=== PATIENT | female | born 1960 | race Two or more races ===

== ENCOUNTER 2024-01-13 15:10 | Outpatient (AMB) | payer MEDICARE, MEDICAID, SELFPAY ==
[2024-01-13 16:00] VITALS: BP 137/79; PULSE 80; RESP 18; TEMP 36.6; O2SAT 94; BMI 42.1
--- NOTE | 2024-01-13 16:00 | PD.ORTHCLVIS ---
Vital signs 01/13/24 16:00 Height 1.52 m Height Method Stated Weight 97.296 kg Weight Measurement Method Standing Scale BMI 42.1 BP 137/79 H Blood Pressure Source Automatic Cuff Blood Pressure Location Right Upper Arm Position Sitting Respiration 18 Pulse 80 Pulse Source Monitor Temp 97.8 F Temp Source Temporal Artery Scan Pulse Oximetry (%) 94 L Oxygen Delivery Method Room Air Med/Allergies Allergies & Medications Allergies No Known Allergies Allergy (Verified 01/13/24 16:01) Medication Reconciliation Unobtainable 06/17/23 [History Confirmed 01/13/24] Subjective Visit Visit for: follow up visit Immunization / Flu Flu Vaccine in the Last 12 Months: No Flu Vaccine Exclusion Criteria: No Exclusion Criteria Pain Pain level (0-10): 5 Pain duration: ALL DAY Pain quality: sharp, dull and aching Ambulatory data Ambulatory device: none Treatments Improvement with previous injections: No Improvement with PT: No Improvement with NSAIDS: no Review of Systems Review of Systems: All systems negative unless otherwise noted in HPI. Assessment and Plan Advanced Care Planning Discussion Advance care planning discussed with:: patient Office Procedures GNS Level of Care Nursing/Assessment Patient Status: Established Patient Nursing Assessment/Reassesment: Medication Reconciliation, Update PMH in EMR and Vital Signs Coordination of Care: Complex Care and Chronic Disease 1-5, Education Complex Pt/Fam, Consent,records obtained, informed consent and Staff clarify orders Established Patient Charge Established Patient Point Assignment: 90 Established Patient Point Charge: EP Level 3 (80-115) Past Medical History Past Medical History Have you ever been diagnosed with any of the following: Respiratory Problems Smoking: No Smoking Exposure: No
--- NOTE | 2024-01-13 16:23 | PD.ORTHCLVIS ---
Vital signs 01/13/24 16:00 01/13/24 16:26 Height 1.52 m Height Method Stated Weight 97.296 kg Weight Measurement Method Standing Scale BMI 42.1 BP 137/79 H 137/79 H Blood Pressure Source Automatic Cuff Blood Pressure Location Right Upper Arm Position Sitting Respiration 18 18 Pulse 80 80 Pulse Source Monitor Temp 97.8 F 97.8 F Temp Source Temporal Artery Scan Pulse Oximetry (%) 94 L 94 L Oxygen Delivery Method Room Air Med/Allergies Allergies & Medications Allergies No Known Allergies Allergy (Verified 01/13/24 16:01) Medication Reconciliation Unobtainable 06/17/23 [History Confirmed 01/13/24] Subjective Visit Visit for: follow up visit Immunization / Flu Flu Vaccine in the Last 12 Months: No Flu Vaccine Exclusion Criteria: No Exclusion Criteria History of Present Illness Chief complaint: Bilateral knee pain Patient is a 63-year-old female with bilateral knee arthritis who is morbidly obese. She had injections 1 month ago. Was done by resident with my supervision. She reports that she had significant pain since that injection. She reports that she wants an MRI. She also has explained to us that she talk to our front desk lead and they Told her that I had a nurse practitioner give her an injection. I let her know that if anyone else gave the injection he would have been a resident physician under my supervision life trained before. Pain Pain level (0-10): 5 Pain duration: ALL DAY Pain quality: sharp, dull and aching Ambulatory data Ambulatory device: none Treatments Improvement with previous injections: No Improvement with PT: No Improvement with NSAIDS: no Review of Systems Review of Systems: All systems negative unless otherwise noted in HPI. Exam Exam Patient is in no acute distress and is cooperative with the examination today. Breathing is nonlabored. In no respiratory distress. Bilateral extremities were evaluated and demonstrates sensation intact to light touch. Palpable pedal pulses are present. No significant edema is present. Bilateral hips were examined. The patient has no pain with log roll of the hips. Internal rotation to 30 degrees and external rotation to 30 degrees is painless. Negative FADIR. The left knee was examined. The left knee is in [varus] alignment. Range of motion from [0-115] degrees. Knee is stable to varus and valgus as well as AP translation with <5mm. Patient has a [negative] McMurrays. There is [no] pain with patellofemoral compression and [no] crepitus noted. The knee is [tender] to palpation [medially]. The right knee was also examined. The right knee is in [varus] alignment. Range of motion from [0-120] degrees. Knee is stable to varus and valgus as well as AP translation with <5mm. Patient has a [negative] McMurrays. There is [no] pain with patellofemoral compression and [no] crepitus noted. The knee is [tender] to palpation [medially]. xrays demonstrate bilateral complete joint space narrowing medially and varus arthritis. Assessment and Plan Problem List (1) Bilateral primary osteoarthritis of knee: Status: Acute Plan Patient is a 63-year-old female who is morbidly obese. She is complaining a lot from her last injection. We discussed with her that as you have more severe arthritis the injections work less and less. She attributed to the fact that the resident did the injection. I discussed with her that there is very little danger and a cortisone injection. I discussed with her that the pain always be durable with a cortisone injection especially in the setting of severe arthritis. I also let her know that if she does not feel comfortable with this office she can find another provider. I gave her multiple options today including repeat injection as well as waiting for another month fourth and total X 3 months. She would like to wait another month before her injection. Advanced Care Planning Discussion Advance care planning discussed with:: patient Office Procedures GNS Level of Care Nursing/Assessment Patient Status: Established Patient Nursing Assessment/Reassesment: Medication Reconciliation, Update PMH in EMR and Vital Signs Coordination of Care: Complex Care and Chronic Disease 1-5, Education Complex Pt/Fam, Consent,records obtained, informed consent and Staff clarify orders Established Patient Charge Established Patient Point Assignment: 90 Established Patient Point Charge: EP Level 3 (80-115) Past Medical History Past Medical History Have you ever been diagnosed with any of the following: Respiratory Problems Smoking: No Smoking Exposure: No
[2024-01-13 16:26] VITALS: BP 137/79; PULSE 80; RESP 18; TEMP 36.6; O2SAT 94
== END 2024-01-13 16:33 | disposition home or self-care (01) ==
PROVIDERS: Supervising Provider Orthopaedic Surgery Adult Reconstructive Orthopaedic Surgery; Visit Provider Orthopaedic Surgery Adult Reconstructive Orthopaedic Surgery
DX: M17.0 Bilateral primary osteoarthritis of knee (principal); E66.01 Morbid (severe) obesity due to excess calories; Z68.41 Body mass index [BMI] 40.0-44.9, adult
CPT/HCPCS: 99213; G0463

== ENCOUNTER 2024-02-17 14:05 | Outpatient (AMB) | payer MEDICAID, MEDICARE, SELFPAY ==
--- NOTE | 2024-02-17 14:18 | ORTHONT_ITS ---
Vital signs 02/17/24 14:19 Height 1.52 m Height Method Stated Weight 98.004 kg Weight Measurement Method Standing Scale BMI 42.4 BP 145/80 H Blood Pressure Source Automatic Cuff Blood Pressure Location Right Upper Arm Position Sitting Respiration 19 Pulse 81 Pulse Source Monitor Temp 97.7 F Temp Source Temporal Artery Scan Pulse Oximetry (%) 93 L Oxygen Delivery Method Room Air Med/Allergies Allergies & Medications Allergies No Known Allergies Allergy (Verified 02/17/24 14:20) Medication Reconciliation Unobtainable 06/17/23 [History Confirmed 02/17/24] Subjective Visit Visit for: follow up visit and knee Immunization / Flu Flu Vaccine in the Last 12 Months: No Flu Vaccine Exclusion Criteria: Refused by Patient History of Present Illness Chief complaint: F/U ON KNEE PAIN Patient is a 63-year-old female with bilateral knee arthritis who is morbidly obese. She had injections 3 month ago And did not get great relief. We recommend repeat injections. We also recommend weight. She reports that she has been unable to lose little weight recently Pain Pain level (0-10): 4 Pain duration: WITH ACTIVITY Pain location: anterior Pain quality: sharp, dull and aching Pain timing: increases with activity Associated signs & symptoms: none Ambulatory data Ambulatory device: none Treatments Improvement with previous injections: Yes Improvement with PT: No Improvement with NSAIDS: no Review of Systems Review of Systems: All systems negative unless otherwise noted in HPI. Exam Exam Patient is in no acute distress and is cooperative with the examination today. Breathing is nonlabored. In no respiratory distress. Bilateral extremities were evaluated and demonstrates sensation intact to light touch. Palpable pedal pulses are present. No significant edema is present. Bilateral hips were examined. The patient has no pain with log roll of the hips. Internal rotation to 30 degrees and external rotation to 30 degrees is painless. Negative FADIR. The left knee was examined. The left knee is in [varus] alignment. Range of motion from [0-115] degrees. Knee is stable to varus and valgus as well as AP translation with <5mm. Patient has a [negative] McMurrays. There is [no] pain with patellofemoral compression and [no] crepitus noted. The knee is [tender] to palpation [medially]. The right knee was also examined. The right knee is in [varus] alignment. Range of motion from [0-120] degrees. Knee is stable to varus and valgus as well as AP translation with <5mm. Patient has a [negative] McMurrays. There is [no] pain with patellofemoral compression and [no] crepitus noted. The knee is [tender] to palpation [medially]. xrays demonstrate bilateral complete joint space narrowing medially and varus arthritis. Assessment and Plan Problem List (1) Bilateral primary osteoarthritis of knee: Status: Acute Plan Patient is a 63-year-old female who is morbidly obese. She has significant bilateral knee pain and we thus recommend bilateral knee cortisone injections. We also recommend weight loss To minimize her complications from surgery. Recommend knee cortisone injections as patient would like to proceed with conservative treatment at this time. The risks and benefits of the procedure were reviewed with the patient and patient gave verbal consent to continue with the procedure. Procedure: performed by Dr. Lobo Using sterile technique the Bilateral knees were thoroughly prepped with alcohol, and approximately 1 cc of Kenalog 40 mg/mL and 4 cc of 1% lidocaine was injected into each knee without resistance into the medial tibial femoral joint space. The patient tolerated the procedure. Advanced Care Planning Discussion Advance care planning discussed with:: patient Office Procedures GNS Level of Care Nursing/Assessment Patient Status: Established Patient Nursing Assessment/Reassesment: Medication Reconciliation, Update PMH in EMR and Vital Signs Coordination of Care: Complex Care and Chronic Disease 1-5, Education Complex Pt/Fam, Consent,records obtained, informed consent, Results/Orders obtained and Staff clarify orders Established Patient Charge Established Patient Point Assignment: 95 Established Patient Point Charge: EP Level 3 (80-115) Surgical Proc/IM SQ injection Major Surgical Procedure: Yes (bilateral knee injection ) Medication Given Medication Given Medication Given: Yes Documented Dose Given: 8 Route: Infiitration Medication Given Medication Given Medication Given: Yes Documented Dose Given: 2 Route: Infiitration Office Meds Xylocaine 10 mg/mL (1 %) injection solution Performing Provider: Teodoro Lobo MD Performing Location: [facility] Administered by: Teodoro Lobo MD on 02/17/24 15:05 Dose Route Admin Location Dispensed Lot Number Expiration Date [facility] [employer] 40 mL Infiltration 40 mL [id number] [facility] triamcinolone acetonide 40 mg/mL suspension for injection Performing Provider: Teodoro Lobo MD Performing Location: [facility] Administered by: Teodoro Lobo MD on 02/17/24 15:05 Dose Route Admin Location Dispensed Lot Number Expiration Date [facility] [employer] 80 mg intra-articular 2 mL [id number] [employer] Past Medical History Past Medical History Have you ever been diagnosed with any of the following: Respiratory Problems Smoking: No Smoking Exposure: No
[2024-02-17 14:19] VITALS: BP 145/80; PULSE 81; RESP 19; TEMP 36.5; O2SAT 93; BMI 42.4
== END 2024-02-17 14:37 | disposition home or self-care (01) ==
PROVIDERS: Supervising Provider Orthopaedic Surgery Adult Reconstructive Orthopaedic Surgery; Visit Provider Orthopaedic Surgery Adult Reconstructive Orthopaedic Surgery
DX: M17.0 Bilateral primary osteoarthritis of knee (principal); E66.01 Morbid (severe) obesity due to excess calories; Z68.41 Body mass index [BMI] 40.0-44.9, adult; M25.562 Pain in left knee; M25.561 Pain in right knee
CPT/HCPCS: 20610; 99213; J3301; J3490; G0463

== ENCOUNTER 2024-05-25 10:36 | Outpatient (AMB) | payer MEDICARE, MEDICAID, SELFPAY ==
[2024-05-25 10:58] VITALS: BP 143/66; PULSE 85; RESP 19; TEMP 36.3; O2SAT 95; BMI 41.3
--- NOTE | 2024-05-25 10:58 | ORTHONT_ITS ---
Vital signs 05/25/24 10:58 Height 1.52 m Height Method Stated Weight 95.368 kg Weight Measurement Method Standing Scale BMI 41.3 BP 143/66 H Blood Pressure Source Automatic Cuff Blood Pressure Location Left Upper Arm Position Sitting Respiration 19 Pulse 85 Pulse Source Monitor Temp 97.3 F Temp Source Temporal Artery Scan Pulse Oximetry (%) 95 Oxygen Delivery Method Room Air Med/Allergies Allergies & Medications Allergies No Known Allergies Allergy (Verified 05/25/24 10:59) Medication Reconciliation Unobtainable 06/17/23 [History Confirmed 05/25/24] Exam Exam Patient is in no acute distress and is cooperative with the examination today. Breathing is nonlabored. In no respiratory distress. Bilateral extremities were evaluated and demonstrates sensation intact to light touch. Palpable pedal pulses are present. No significant edema is present. Bilateral hips were examined. The patient has no pain with log roll of the hips. Internal rotation to 30 degrees and external rotation to 30 degrees is painless. Negative FADIR. The left knee was examined. The left knee is in [varus] alignment. Range of motion from [0-115] degrees. Knee is stable to varus and valgus as well as AP translation with <5mm. Patient has a [negative] McMurrays. There is [no] pain with patellofemoral compression and [no] crepitus noted. The knee is [tender] to palpation [medially]. The right knee was also examined. The right knee is in [varus] alignment. Range of motion from [0-120] degrees. Knee is stable to varus and valgus as well as AP translation with <5mm. Patient has a [negative] McMurrays. There is [no] pain with patellofemoral compression and [no] crepitus noted. The knee is [tender] to palpation [medially]. xrays demonstrate bilateral complete joint space narrowing medially and varus arthritis. Assessment and Plan Problem List (1) Bilateral primary osteoarthritis of knee: Status: Acute Plan Patient is a 63-year-old female who is morbidly obese. She has significant miranda ateral knee pain and we thus recommend bilateral knee cortisone injections. We also recommend weight loss To minimize her complications from surgery. Recommend knee cortisone injections as patient would like to proceed with conservative treatment at this time. The risks and benefits of the procedure were reviewed with the patient and patient gave verbal consent to continue with the procedure. Procedure: performed by Dr. Lobo Using sterile technique the Bilateral knees were thoroughly prepped with alcohol, and approximately 1 cc of Kenalog 40 mg/mL and 4 cc of 1% lidocaine was injected into each knee without resistance into the medial tibial femoral joint space. The patient tolerated the procedure. Advanced Care Planning Discussion Advance care planning discussed with:: patient Office Procedures GNS Level of Care Nursing/Assessment Patient Status: Established Patient Nursing Assessment/Reassesment: Medication Reconciliation, Update PMH in EMR and Vital Signs Coordination of Care: Complex Care and Chronic Disease 1-5, Education Complex Pt/Fam, Consent,records obtained, informed consent, Results/Orders obtained and Staff clarify orders Special Needs: Language special needs Established Patient Charge Established Patient Point Assignment: 95 Established Patient Point Charge: EP Level 3 (80-115) Surgical Proc/IM SQ injection Major Surgical Procedure: Yes (BILATERAL KNEE INJECTION ) Medication Given Medication Given Medication Given: Yes Documented Dose Given: 8 Route: Infiitration Medication Given Medication Given Medication Given: Yes Documented Dose Given: 2 Route: Infiitration Office Meds Xylocaine 10 mg/mL (1 %) injection solution Performing Provider: Teodoro Lobo MD Performing Location: [facility] Administered by: Teodoro Lobo MD on 05/25/24 11:50 Dose Route Admin Location Dispensed Lot Number Expiration Date [facility] [place] [employer] 40 mL Infiltration 40 mL [id number] 08/23/27 25399-997-29 [facility] triamcinolone acetonide 40 mg/mL suspension for injection Performing Provider: Teodoro Lobo MD Performing Location: [facility] Administered by: Teodoro Lobo MD on 05/25/24 11:50 Dose Route Admin Location Dispensed Lot Number Expiration Date [facility] [place] [employer] 80 mg intra-articular 2 mL [id number] [employer] MA Intake Visit Data Collection New Patient or Established: Established Patient (seen at [facility] within 3 years) Reason for Visit:: REQ BILATERAL KNEE INJECTION Seen by Clinical Staff ONLY (RN/MA): No Texture Artist Required: Yes PCP or OBGYN visit in last 3 months: Yes Hx Now: No Do You Feel Safe at Home: Yes Authorities Contacted: N/A Questionairres Past Medical History Past Medical History Have you ever been diagnosed with any of the following: Respiratory Problems Smoking: No Smoking Cessation Counseling: No Smoking Exposure: No Subjective Visit Visit for: follow up visit, knee and injections Immunization / Flu Flu Vaccine in the Last 12 Months: No Flu Vaccine Exclusion Criteria: No Exclusion Criteria History of Present Illness Chief complaint: Bilateral knee pains Patient is a 63-year-old female with bilateral knee pain and bilateral knee arth ritis. She has been getting injections every 3 months. She has been trying to lose weight. Pain Pain level (0-10): 2 Pain duration: WITH ACTIVITY Pain location: anterior Pain quality: dull and aching Ambulatory data Ambulatory device: none Treatments Improvement with previous injections: Yes Improvement with PT: No Improvement with NSAIDS: no Review of Systems Review of Systems: All systems negative unless otherwise noted in HPI.
== END 2024-05-25 11:31 | disposition home or self-care (01) ==
LOC: HODSRG 10:36
PROVIDERS: Supervising Provider Orthopaedic Surgery Adult Reconstructive Orthopaedic Surgery; Visit Provider Orthopaedic Surgery Adult Reconstructive Orthopaedic Surgery
DX: M25.562 Pain in left knee (principal); M25.561 Pain in right knee; M17.0 Bilateral primary osteoarthritis of knee
CPT/HCPCS: 20610; 99213; J3301; J3490; G0463